=== PATIENT | male | born 1975 | race African-American/Black ===

== ENCOUNTER 2017-10-09 23:55 | Inpatient (IN) | payer MEDICAID ==
[~2017-10-09] VITALS: Ht 167.6 cm; Wt 54.9 kg
[2017-10-10 01:16] LABS: CHLORIDE 109 mEq/L (98-107)
[2017-10-10 01:17] LABS: INR 1.1; PROTHROMBIN TIME 11.5 sec (9.4-11.6)
[2017-10-10 01:36] LABS: HEMATOCRIT. 23.5 % (42.0-52.0); MEAN CORPUSCULAR HEMOGLOBIN 29.9 pg (28.0-32.0); RED BLOOD CELL COUNT 2.83 mill/uL (4.7-6.1)
[2017-10-10 01:37] LABS: MEAN PLATELET VOLUME 7.5 fl (7.4-10.4); PLATELET 392 x1000/uL (130-400); RED CELL DISTRIBUTION WIDTH 26.5 % (11.6-14.6)
[2017-10-10 01:38] LABS: HEMOGLOBIN. 8.4 g/dL (14.0-18.0)
[2017-10-10] MEDS ORDERED: ASPIRIN 81MG TABLET PO SCH (02:24)
[2017-10-10] MEDS ORDERED: SODIUM CHLORIDE 0.9% 1000ML BAG (SEPSIS BOLUS) IV SCH (02:25)
[2017-10-10] MEDS ORDERED: DIPHENHYDRAMINE 50MG/ML VIAL IV SCH (02:25)
[2017-10-10 02:29] LABS: ETHANOL BLOOD < 10 mg/dL
[2017-10-10 03:19] LABS: NUCLEATED RED BLOOD CELLS 2 /100 WBC; PLATELET ESTIMATE NORMAL
[2017-10-10 08:00] VITALS: BP 108/69
[2017-10-10 08:14] VITALS: BP 108/69
[2017-10-10] MEDS ORDERED: SODIUM CHLORIDE 0.9% 1,000 ML IV SCH (08:44)
[2017-10-10] MEDS ORDERED: ONDANSETRON HCL 4MG/2ML VIAL IV PRN (08:45)
[2017-10-10] MEDS ORDERED: NA PHOS,M-B/NA PHOS,DI-BA ENEMA 118ML PR PRN (08:45)
[2017-10-10] MEDS ORDERED: DOCUSATE SODIUM 100MG CAPSULE PO PRN (08:45)
[2017-10-10] MEDS ORDERED: GUAIFENESIN 200MG/10ML SUGAR FREE UDC PO PRN (08:45)
[2017-10-10] MEDS ORDERED: NITROGLYCERIN 0.4MG TABLET SL SL PRN (08:45)
[2017-10-10] MEDS ORDERED: KETOROLAC 30MG/ML VIAL IV PRN (08:45)
[2017-10-10] MEDS ORDERED: ACETAMINOPHEN 325MG TABLET PO PRN (08:45)
[2017-10-10] MEDS ORDERED: LORAZEPAM 0.5MG TABLET PO PRN (08:45)
[2017-10-10] MEDS ORDERED: IPRATROPIUM/ALBUTEROL 0.5-3(2.5)MG/3ML NEB INH PRN (08:45)
[2017-10-10] MEDS ORDERED: PANTOPRAZOLE SODIUM 40 MG/VIAL IV SCH (10:00)
[2017-10-10] MEDS ORDERED: ZOLPIDEM TARTRATE 5MG TABLET PO PRN (21:00)
== END 2017-10-10 08:35 | disposition left against medical advice (07) | DRG 662 ==
LOC: ER 10-10 03:05 → 6EST 10-10 03:06 → ENRESERV 10-10 04:02
PROVIDERS: ADMIT Internal Medicine; ATTEND Internal Medicine
DX: D57.00 Hb-SS disease with crisis, unspecified (principal); M25.572 Pain in left ankle and joints of left foot; Z53.21 Procedure and treatment not carried out due to patient leaving prior to being seen by health care provider; Z90.49 Acquired absence of other specified parts of digestive tract
CPT/HCPCS: 36415; 71045; 73610; 80053; 83605; 83690; 84484; 85025; 85044; 85610; 93005; 96361; 96374; 99285; G0482; J1200; J7030